=== PATIENT | male | born 1975 | race African-American/Black ===

== ENCOUNTER 2016-06-04 00:15 | Observation (INO) | payer SELFPAY ==
[~2016-06-04] VITALS: Ht 188 cm; Wt 98.0 kg
[~2016-06-04 00:15] MED LIST: CEPH-460 PO; IBUP800T23 PO
[2016-06-04 00:17] VITALS: BP 135/77; PULSE 70; RESP 16; TEMP 97.9; O2SAT 98
[2016-06-04] MEDS ORDERED: CYCL7.5T33 PO (01:07)
[2016-06-04] MEDS ORDERED: MOBI7.5T PO (01:07)
[2016-06-04] MEDS ORDERED: OXYC30TA PO (01:07)
[2016-06-04] MEDS ORDERED: CLINDAMYCIN INJ 900 MG in SODIUM CHLORIDE 0.9% INJ 100 ML IV ONE (01:30)
--- NOTE | 2016-06-04 01:36 | PD ---
HPI Chief Complaint: Wound/Suture/Staple Re-Check Time Seen by Provider: 01:15 Travel History International Travel<30 days: No Contact w/Intl Traveler<30days: No Traveled to known affect area: No History of Present Illness HPI 40-year-old male arrives with the left hand pain. 2 months prior he had sutures placed along the palmar aspect of the 5th left metacarpophalangeal phalangeal articulation. 4-0 Vicryl sutures were placed. The patient was sent home on Keflex. He checked Keflex. For the past few days he has had increasing pain and swelling in the region of the left fifth metacarpophalangeal articulation. There is pain with passive flexion. He denies fever. He denies interim trauma. PFSH Past Medical History Diminished Hearing: No Musculoskeletal: Yes (CHRONIC BACK PAIN) Immunizations Current: Yes Past Surgical History Surgical History: No Previous Surgery Social History Alcohol Use: No Tobacco Use: Yes (1PPD) Substance Use: No Allergies-Medications (Allergen,Severity, Reaction): Coded Allergies: Penicillin (Verified Allergy, Unknown, 06/04/16) Reported Meds & Prescriptions Reported Meds & Active Scripts Active Reported Mobic (Meloxicam) 7.5 Mg Tab 7.5 Mg PO DAILY Oxycodone (Oxycodone HCl) 30 Mg Tab 30 Mg PO Q8H PRN Flexeril (Cyclobenzaprine HCl) 7.5 Mg Tab 7.5 Mg PO TID Review of Systems Except as stated in HPI: all other systems reviewed are Neg Physical Exam Narrative GENERAL: 40-year-old male pleasant, WNWD SKIN: Warm and dry. HEAD: Atraumatic. Normocephalic. EYES: Pupils equal and round. No scleral icterus. No injection or drainage. ENT: No nasal bleeding or discharge. Mucous membranes pink and moist. NECK: Trachea midline. No JVD. CARDIOVASCULAR: Regular rate and rhythm. No murmur appreciated. RESPIRATORY: No accessory muscle use. Clear to auscultation. Breath sounds equal bilaterally. GASTROINTESTINAL: Abdomen soft, non-tender, nondistended. Hepatic and splenic margins not palpable. MUSCULOSKELETAL: No obvious deformities. No clubbing. No cyanosis. No edema. Swelling through the middle phalanx of the fifth left finger. Tenderness with passive flexion. Tenderness on palpation. NEUROLOGICAL: Awake and alert. No obvious cranial nerve deficits. Motor grossly within normal limits. Normal speech. PSYCHIATRIC: Appropriate mood and affect; insight and judgment normal. Data Data Last Documented VS Vital Signs Date Time Temp Pulse Resp B/P Pulse Ox O2 Delivery O2 Flow Rate FiO2 06/04/16 00:17 97.9 70 16 135/77 98 Room Air Orders Basic Metabolic Panel (Bmp) (06/04/16 01:25) Complete Blood Count With Diff (06/04/16 01:25) Blood Culture (06/04/16 01:25) Wound Culture And Gram Stain (06/04/16 01:25) Iv Access Insert/Monitor (06/04/16 01:25) Wound Care (06/04/16 01:25) Clindamycin Inj (Cleocin Inj) (06/04/16 01:30) Hand, Complete (Rxq4les) (06/04/16 ) Admit Order (Ed Use Only) (06/04/16 03:21) Labs Laboratory Tests Test 06/04/16 02:05 White Blood Count 7.1 TH/MM3 Red Blood Count 4.33 MIL/MM3 Hemoglobin 13.6 GM/DL Hematocrit 39.8 % Mean Corpuscular Volume 92.0 FL Mean Corpuscular Hemoglobin 31.5 PG Mean Corpuscular Hemoglobin 34.2 % Concent Red Cell Distribution Width 13.0 % Platelet Count 180 TH/MM3 Mean Platelet Volume 7.9 FL Neutrophils (%) (Auto) 48.4 % Lymphocytes (%) (Auto) 41.8 % Monocytes (%) (Auto) 6.2 % Eosinophils (%) (Auto) 2.8 % Basophils (%) (Auto) 0.8 % Neutrophils # (Auto) 3.4 TH/MM3 Lymphocytes # (Auto) 3.0 TH/MM3 Monocytes # (Auto) 0.4 TH/MM3 Eosinophils # (Auto) 0.2 TH/MM3 Basophils # (Auto) 0.1 TH/MM3 CBC Comment DIFF FINAL Differential Comment Sodium Level 141 MEQ/L Potassium Level 3.9 MEQ/L Chloride Level 106 MEQ/L Carbon Dioxide Level 26.8 MEQ/L Anion Gap 8 MEQ/L Blood Urea Nitrogen 10 MG/DL Creatinine 1.07 MG/DL Estimat Glomerular Filtration 93 ML/MIN Rate Random Glucose 88 MG/DL Calcium Level 8.8 MG/DL MDM Medical Decision Making Medical Screen Exam Complete: Yes Emergency Medical Condition: Yes Medical Record Reviewed: Yes Differential Diagnosis Abscess, flexor tenosynovitis, cellulitis, suturoma Narrative Course CBC & BMP Diagram 06/04/16 02:05 L Hand X-ray: No acute abnormality Pt will be admitted for evaluation by hand surgery. There is concern the patient may have flexor tenosynovitis. Dr Up is the hand surgeon senior health consultant. Clindamycin started. Blood cultures and wound cultures obtained. Diagnosis Primary Impression: Laceration of hand, left Qualified Code: S61.412S - Laceration of hand, left, sequela Additional Impression: Flexor tenosynovitis of finger Admitting Information Admitting Physician Requests: Observation Everett Traore MD Jun 04, 2016 01:36
--- NOTE | 2016-06-04 02:13 | RADRPT ---
EXAM DATE/TIME: 06/04/2016 01:44 [facility] COMPARISON: HAND LEFT COMPLETE ([id number]), April 27, 2016, 22:47. INDICATIONS : Patient states swelling after injury 1 month ago. MEDICAL HISTORY : None. SURGICAL HISTORY : None. ENCOUNTER: Initial ACUITY: 1 week PAIN SCORE: 1/10 LOCATION: Left Hand FINDINGS: Three view examination of the left hand demonstrates no soft tissue swelling, dislocation, or fractur e. The carpal bones appear intact. The interphalangeal and metacarpophalangeal joints are intact. Bony mineralization is normal. CONCLUSION: Unremarkable examination of the left hand. Kevin Hercules Jr., MD on June 04, 2016 at 2:11 Board Certified Radiologist. This report was verified electronically.
[2016-06-04 02:20] LABS: AUTOMATED NEUTROPHIL # 3.4 TH/MM3 (1.8-7.7); BASOPHIL # 0.1 TH/MM3 (0-0.2); BASOPHIL % 0.8 % (0.0-2.0); EOSINOPHIL # 0.2 TH/MM3 (0-0.4); EOSINOPHIL % 2.8 % (0.0-4.0); HEMATOCRIT 39.8 % (39.0-51.0); HEMO FLAGS DIFF FINAL; LYMPH % 41.8 % (9.0-44.0); MEAN CORPUSCULAR HEMOGLOBIN 31.5 PG (27.0-34.0); MEAN CORPUSCULAR HGB CONC 34.2 % (32.0-36.0); MONO % 6.2 % (0.0-8.0); NEUT % 48.4 % (16.0-70.0); PLATELET COUNT 180 TH/MM3 (150-450); RED BLOOD COUNT 4.33 MIL/MM3 (4.50-5.90); WHITE BLOOD COUNT 7.1 TH/MM3 (4.0-11.0)
[2016-06-04 02:55] LABS: BICARBONATE 26.8 MEQ/L (21.0-32.0); POTASSIUM 3.9 MEQ/L (3.5-5.1)
[2016-06-04] MEDS ORDERED: PROCHLORPERAZINE 25 MG SUPP PR PRN (03:30)
[2016-06-04] MEDS ORDERED: ONDANSETRON HCL 4 MG/2 ML VIAL IVP PRN (03:30)
[2016-06-04] MEDS ORDERED: ENOXAPARIN SODIUM 40 MG/0.4 ML SYRINGE SQ SCH (03:30)
[2016-06-04] MEDS ORDERED: BISACODYL 10 MG SUPP PR PRN (03:30)
[2016-06-04] MEDS ORDERED: SODIUM CHLORIDE 0.9% FLUSH 5 ML FLUSH FLUSH PRN (03:30)
[2016-06-04] MEDS ORDERED: ACETAMINOPHEN 325 MG TAB PO PRN (03:30)
[2016-06-04] MEDS ORDERED: SENNOSIDES 8.6 MG TAB PO PRN (03:30)
[2016-06-04] MEDS ORDERED: HYDROmorphone HCL PF 1 MG/ML VIAL IV PUSH ONE (03:45)
[2016-06-04] MEDS: SODIUM CHLOR 0.9% 1000 ML INJ 1,000 ML IV SCH ×2 (04:00→13:21)
--- NOTE | 2016-06-04 04:44 | HHI.HP ---
[facility] No Primary Care Physician Admission Diagnosis 5th L Finger Infection Diagnoses: Chief Complaint: 5th digit on left hand infection Travel History International Travel<30 Days: No Contact w/Intl Traveler <30 Da: No Traveled to Known Affected Are: No History of Present Illness 40 y/o male with no medical history presented to the ED with complaints of pain and swelling in the 5th digit on left hand. Patient states in March he was playing football and he suffered a laceration that was repaired in the ED with sutures. He was told the sutures would dissolve but he is unsure if they did. He states if you squeeze the wound pus will come out. He denies any fever, chills, sob or chest pain. Review of Systems Constitutional: DENIES: Fever, Chills Respiratory: DENIES: Cough, Sputum production, Shortness of breath Cardiovascular: DENIES: Chest pain, Lower Extremity Edema Gastrointestinal: DENIES: Constipation, Diarrhea, Nausea, Vomiting Genitourinary: DENIES: Hematuria Musculoskeletal: COMPLAINS OF: Joint pain, Joint Swelling, DENIES: Back pain, Neck pain Integumentary: DENIES: Rash Hematologic/lymphatic: DENIES: Lymphadenopathy Immunologic/allergic: DENIES: Urticaria Neurologic: DENIES: Headache Past Family Social History Past Medical History Patient denies any medical history Past Surgical History index finger on right hand surgery Reported Medications Reported Meds & Active Scripts Active Reported Mobic (Meloxicam) 7.5 Mg Tab 7.5 Mg PO DAILY Oxycodone (Oxycodone HCl) 30 Mg Tab 30 Mg PO Q8H PRN Flexeril (Cyclobenzaprine HCl) 7.5 Mg Tab 7.5 Mg PO TID Allergies: Coded Allergies: Penicillin (Verified Allergy, Unknown, 06/04/16) Active Ordered Medications Current Medications Medications (Trade) Dose Ordered Sig/Brown Route Start Time Stop Time Status Last Admin (NS 1000 ml Inj) 1,000 ml @ 100 mls/hr Q10H IV 06/04/16 03:21 06/04/16 04:00 (NS Flush) 2 ml UNSCH PRN FLUSH 06/04/16 03:30 (NS Flush) 2 ml BID FLUSH 06/04/16 09:00 (Tylenol) 650 mg Q4H PRN PO 06/04/16 03:30 (Zofran Inj) 4 mg Q6H PRN IVP 06/04/16 03:30 06/04/16 04:00 (Compazine Supp) 25 mg Q12H PRN GA 06/04/16 03:30 (Dulcolax Supp) 10 mg DAILY PRN GA 06/04/16 03:30 (Senokot) 17.2 mg Q12H PRN PO 06/04/16 03:30 Enoxaparin Sodium 40 mg 40 mg Q24H SQ 06/04/16 03:30 06/04/16 04:00 (Cleocin Inj/NS Inj) 106 ml @ 212 mls/hr Q6H IV 06/04/16 10:00 Family History Maternal grandma: DM,HTN Paternal grandma: Alzheimer's Social History Tobacco use: 1 ppd Alcohol use: denies Illicit drug use: denies Physical Exam Vital Signs Vital Signs Date Time Temp Pulse Resp B/P Pulse Ox O2 Delivery O2 Flow Rate FiO2 06/04/16 00:17 97.9 70 16 135/77 98 Room Air Physical Exam GENERAL: This is a well-nourished, well-developed patient, in no apparent distress. SKIN: 5th digit lower laceration with erythema and pus HEAD: Atraumatic. Normocephalic. EYES: Pupils equal round and reactive. ENT: Nose without bleeding, purulent drainage or septal hematoma. Airway patent. NECK: Trachea midline. No JVD CARDIOVASCULAR: Regular rate and rhythm without murmurs, gallops, or rubs. RESPIRATORY: Clear to auscultation. Breath sounds equal bilaterally. No wheezes , rales, or rhonchi. GASTROINTESTINAL: Abdomen soft, non-tender, nondistended. MUSCULOSKELETAL: Extremities without clubbing, cyanosis, or edema. Minimal movement with 4th and 5th left digits. No calf tenderness. NEUROLOGICAL: Awake and alert. Cranial nerves II through XII intact. Motor and sensory grossly within normal limits. Five out of 5 muscle strength in all muscle groups. Normal speech. Laboratory Laboratory Tests Test 06/04/16 02:05 White Blood Count 7.1 Red Blood Count 4.33 Hemoglobin 13.6 Hematocrit 39.8 Mean Corpuscular Volume 92.0 Mean Corpuscular Hemoglobin 31.5 Mean Corpuscular Hemoglobin 34.2 Concent Red Cell Distribution Width 13.0 Platelet Count 180 Mean Platelet Volume 7.9 Neutrophils (%) (Auto) 48.4 Lymphocytes (%) (Auto) 41.8 Monocytes (%) (Auto) 6.2 Eosinophils (%) (Auto) 2.8 Basophils (%) (Auto) 0.8 Neutrophils # (Auto) 3.4 Lymphocytes # (Auto) 3.0 Monocytes # (Auto) 0.4 Eosinophils # (Auto) 0.2 Basophils # (Auto) 0.1 CBC Comment DIFF FINAL Differential Comment Sodium Level 141 Potassium Level 3.9 Chloride Level 106 Carbon Dioxide Level 26.8 Anion Gap 8 Blood Urea Nitrogen 10 Creatinine 1.07 Estimat Glomerular Filtration 93 Rate Random Glucose 88 Calcium Level 8.8 Date/Time Procedure Status Source Growth 06/04/16 02:10 Aerobic Blood Culture Received Blood Peripheral Pending 06/04/16 02:10 Anaerobic Blood Culture Received Blood Peripheral Pending 06/04/16 02:05 Gram Stain Received Wound Finger Pending 06/04/16 02:05 Wound Culture Received Wound Finger Pending Result Diagram: 06/04/16 0205 06/04/16 020 Assessment and Plan Problem List: (1) Laceration of hand, left ICD Code: S61.412A Status: Acute (2) Tobacco abuse ICD Code: Z72.0 Status: Acute Assessment and Plan 40 y/o male with no medical history presented with: Laceration of hand, left Images reviewed: hand xray unremakable -Consult hand surgery -Clindamyacin IV Q6h -Pain management with Iv Dilaudid -NPO Tobacco abuse -Encouraged to quit DVT Prophylaxis: lovenox Written by Loren ALLISON, acting as scribe for Dr. Stern on 06/04/16 at 0350. The documentation accurately reflects the work performed [id number] and decisions made by me and the physician Dr Stern on 06/04/16. The documentation accurately reflects the work performed [id number] by me Dr Stern on 06/04/16 at 03:50. Code Status full Discussed Condition With Patient Problem Qualifiers (1) Laceration of hand, left: Qualified Code: S61.412S - Laceration of hand, left, sequLoren Rosas Jun 04, 2016 04:44 Helena Stern MD Jun 04, 2016 05:27
[2016-06-04] MEDS ORDERED: HYDROmorphone HCL PF 1 MG/ML VIAL IV PRN ×2 (05:45)
[2016-06-04] MEDS ORDERED: ACETAMINOPHEN/HYDROcodone 325 MG/5 MG TAB PO PRN (05:45)
[2016-06-04] MEDS ORDERED: NALOXONE HCL 0.4 MG/ML AMP IV PRN (05:45)
[2016-06-04] MEDS ORDERED: ACETAMINOPHEN/HYDROcodone 325 MG/10 MG TAB PO PRN (05:45)
[2016-06-04 07:35] VITALS: BP 120/76; PULSE 76; RESP 17; TEMP 98.2; O2SAT 99
[2016-06-04] MEDS: HYDROmorphone HCL PF 1 MG/ML VIAL IV PRN (07:47)
[2016-06-04 08:04] VITALS: O2SAT 95
[2016-06-04 08:17] VITALS: BP 124/65; PULSE 60; RESP 18; TEMP 97.8; O2SAT 98
[2016-06-04] MEDS ORDERED: SODIUM CHLORIDE 0.9% FLUSH 5 ML FLUSH FLUSH SCH (09:00)
[2016-06-04] MEDS: CLINDAMYCIN INJ 900 MG in SODIUM CHLORIDE 0.9% INJ 100 ML IV SCH ×2 (09:37→16:00)
[2016-06-04 11:24] VITALS: BP 117/67; PULSE 69; RESP 18; TEMP 98.2; O2SAT 99
[2016-06-04 16:01] VITALS: BP 112/75; PULSE 69; RESP 18; TEMP 98.5; O2SAT 100
[2016-06-04] MEDS ORDERED: CLIN1CAP6 PO (17:12)
--- NOTE | 2016-06-04 17:14 | HHI.PR ---
Addendum to Inpatient Note Addendum Reason: Additional Documentation Additional Information Patient underwent I&D at bedside by Hand surgery and was cleared for discharge. Patient and evaluated. He is anxious for discharge today. He reports that he did have some chills at home but no documented fevers. He looks well otherwise. Patient will be discharged home on antibiotics. Gram stain so far is growing gram-positive cocci. He is discharged on clindamycin to follow-up next week with hand surgery. Crissy Huber MD Jun 04, 2016 17:14
--- NOTE | 2016-06-04 17:15 | HHI.DCPOC ---
Discharge Care Plan Diagnosis: (1) Abscess of finger Goals to Promote Your Health * To prevent worsening of your condition and complications * To maintain your health at the optimal level Directions to Meet Your Goals Take your medications as prescribed Follow your dietary instruction Follow activity as directed Keep your appointments as scheduled Take your immunizations and boosters as scheduled If your symptoms worsen call your PCP, if no PCP go to Urgent Care Center or Emergency Room Smoking is Dangerous to Your Health. Avoid second hand smoke Call the 24-hour hour crisis hotline for domestic abuse at Crissy Huber MD Jun 04, 2016 17:15
--- NOTE | 2016-06-04 17:38 | MB ---
cc: HELENA STERN MD, LAURENCE H. M.D. DATE OF CONSULTATION: 06/04/16 REQUESTING PHYSICIAN The patient is being seen at the request of Dr. Helena Stern. HISTORY OF PRESENT ILLNESS The patient is a 40-year-old male who injured his left hand in March. The patient was seen in the emergency room where the wound was closed. Vicryl sutures were put in. The patient now came in with the stitches still in place with some pus coming out of the wound. The patient has noted that it was painful and now comes in for examination and treatment. His white count today is 7.1 with no shift. The percentage of neutrophils is 48.4 with an absolute of 3.4. The patient has several cultures which are pending. PAST MEDICAL HISTORY The patient is otherwise well. REVIEW OF SYSTEMS Only positive for pain in the area of the swelling. He does note discharge from the area where the stitches where placed. He denies high blood pressure, diabetes, heart disease, kidney disease, liver disease, other diseases of infectious etiology. MEDICATIONS 1. Mobic. 2. Oxycodone. 3. Flexeril. ALLERGIES PENICILLIN. FAMILY HISTORY Significant for diabetes, hypertension and Alzheimer's. SOCIAL HISTORY The patient smokes a pack of cigarettes per day. Denies alcohol or drug abuse. PHYSICAL EXAMINATION GENERAL: The patient is lying comfortably in bed. HEENT: His extraocular muscles are intact. His pupils are equal and reactive to light. His mouth is clear. NECK: His neck is supple without mass. LUNGS: His lungs are clear. HEART: His heart has a regular rate and rhythm. EXTREMITIES: Examination of his upper extremities reveals a callus area with some drainage on the palmar surface of his left hand, this is at the base of the fifth finger. It is in the webspace between the fourth and fifth fingers. The patient is able to flex and extend his fingers although not fully due to discomfort. There is no evidence of dorsal swelling. The fingers themselves are not swollen and the palm is not swollen, there is no significant redness. VITAL SIGNS: His temperature is 97.8, pulse is 60, respirations were 18, blood pressure is 124/65 with a pulse oximetry of 98 on room air. IMAGING Hand x-ray was performed and this is negative for any deep involvement or any foreign bodies. IMPRESSION The patient has a stitch abscess, this appears to be isolated to the area of his previous injury. PLAN The area will be treated surgically in the emergency room and the patient will be able to be discharged on oral antibiotics. MD SIOMARA Lennon/BJCarey /3:30 PM /5:10 PM
--- NOTE | 2016-06-04 21:30 | MP ---
cc: JALEN MELTON M.D. DATE OF SURGERY 06/04/16 PREOPERATIVE DIAGNOSIS Stitch abscess of left hand. POSTOPERATIVE DIAGNOSIS Stitch abscess of left hand. PROCEDURE 1. Incision and drainage of a stitch abscess of left hand 2. Excisional debridement of skin of wound of left hand. ANESTHESIA Local SURGEON Margoth Melton MD FLAKER OPERATOR Christina Montiel PA-C INDICATIONS A 40-year-old male who had his hand sewn up after sustaining a laceration in March of last year. The patient had sutures which did not fall out and developed a stitch abscess. FINDINGS At the completion of the procedure, the small cavity which was present was completely clean. There was no evidence of any loculations. Operative time was approximately 45 minutes PROCEDURE IN DETAIL The patient was seen in the emergency room where the operation was performed. He was in the supine position. The left hand was prepped with Hibiclens and draped in usual sterile fashion. Bupivacaine 0.5% plain was used to make a metacarpal head block as well as a dorsal nerve block of the cutaneous branch of the ulnar nerve. Once the anesthetic had taken effect, under loupe magnification the stitch which was present was removed. The patient was debrided. The wound was copiously irrigated with saline and explored. There was some granulation tissue which bled for 3-5 minutes and stopped. The deep tissue showed no foreign body and adequate perfusion. The area was then cleansed of blood, irrigated copiously and packed with Iodoform packing and dressed with povidone-iodine ointment, Adaptic, 4x4s and Dedrick. The patient was then discharged back to the care of the emergency room staff in the F pod for discharge on antibiotics as indicated and to follow up with me in my office next week. The patient and his fiance, who is a nurse, were given wound care instructions and several packets of povidone-iodine ointment in order to change the dressing daily. They were instructed to remove the packing in the morning. Soak the hand daily for 10 minutes in a dilute solution of Betadine and water, call my office and follow up with me next week. In addition, they were advised to keep the hand elevated and dry between soakings. MD SIOMARA Lennon/ /3:36 PM /9:23 PM
== END 2016-06-04 18:12 | disposition home or self-care (01) ==
LOC: NEPC 00:15 → NEDA 03:24 → NEDH 06:54 → NEPFCDU 08:15
PROVIDERS: ADMIT Family Medicine; ATTEND Family Medicine
DX: S61.412S Laceration without foreign body of left hand, sequela (principal); L02.512 Cutaneous abscess of left hand; B95.62 Methicillin resistant Staphylococcus aureus infection as the cause of diseases classified elsewhere; M65.9 Synovitis and tenosynovitis, unspecified; M54.9 Dorsalgia, unspecified; G89.29 Other chronic pain; F17.210 Nicotine dependence, cigarettes, uncomplicated; W22.8XXS Striking against or struck by other objects, sequela
CPT/HCPCS: 10060; 11042; 73130; 80048; 85025; 86403; 87040; 87070; 87186; 87205; 96374; 97161; 99285; G0378; G8987; G8988; J1170; J1650; J2405; J7030